=== PATIENT | female | born 1985 | race Hispanic/Latino ===

== ENCOUNTER → 2025-04-28 | Day surgery (SDC) | payer OTHER ==
[~2025-04-28] MED LIST: MIDAZOLAM HCL 2 MG/2 ML VIAL ONE; PROPOFOL IV EMULSION 10 MG/ML 20 ML VIAL ONE
[2025-04-28] MEDS: LACTATED RINGER'S 1,000 ML ONE (09:38)
[2025-04-28 11:14] VITALS: TEMP 97.4
[2025-04-28 11:40] VITALS: BP 121/70; PULSE 65; RESP 18; O2SAT 99
== END | disposition home or self-care (01) ==
LOC: OR 09:07
PROVIDERS: ATTEND Internal Medicine Gastroenterology
DX: K21.9 Gastro-esophageal reflux disease without esophagitis (principal); K29.00 Acute gastritis without bleeding; K29.50 Unspecified chronic gastritis without bleeding; B96.81 Helicobacter pylori [H. pylori] as the cause of diseases classified elsewhere; K20.90 Esophagitis, unspecified without bleeding; R43.8 Other disturbances of smell and taste; K76.0 Fatty (change of) liver, not elsewhere classified; I10 Essential (primary) hypertension; E66.01 Morbid (severe) obesity due to excess calories; F41.9 Anxiety disorder, unspecified; F32.A Depression, unspecified; Z68.33 Body mass index [BMI] 33.0-33.9, adult; Z71.3 Dietary counseling and surveillance; Z80.0 Family history of malignant neoplasm of digestive organs
CPT/HCPCS: 43239; 81025; J2250; J2470; J2704; J7121